=== PATIENT | male | born 1945 | race Caucasian/White ===

== ENCOUNTER 2016-12-14 16:43 | Inpatient (IN) | payer MEDICARE ==
[2016-12-14 17:39] LABS: Hematocrit 45.2 % (42.0-52.0); Hemoglobin 15.4 gm/dL (13.5-18.0); Mean Corpuscular Hemoglobin 30.7 pg (27-31); Mean Corpuscular Hgb Conc 34.1 g/dl (32-36); Mean Platelet Volume 10.8 fl (6.0-9.5); Neutrophil # 4.5 K/mm3 (1.3-6.0); Neutrophil % 80.3 % (42-75.0); Platelet Count 190 K/mm3 (150-450); Red Blood Count 5.02 M/mm3 (4.7-6.0); Red Cell Distribution Width 13.9 % (11.5-14.0); White Blood Count 5.6 K/mm3 (4.0-10.5)
[2016-12-14] MEDS: NORMAL SALINE 1,000 ML IV PRN (17:45)
[2016-12-14 17:49] LABS: Albumin * 3.5 gm/dl (3.4-5.0); Anion Gap 13.1 mmol/L (6.8-13.8); BUN/Creatinine Ratio 14.4 (9.0-21.6); Bilirubin, Total 1.4 mg/dL (0.0-1.1); CRP 9.3 mg/dL (0.0-0.9); Calcium * 8.9 mg/dL (7.9-10.9); Carbon Dioxide 28.8 mmol/L (24-32.6); Potassium 4.9 mmol/L (3.4-4.6); Total Protein 7.4 gm/dL (6.2-8.2)
[2016-12-14] MEDS ORDERED: VANCOMYCIN HCL 1 GM in DEXTROSE 5 % IN WATER 250 ML IV ONE ×2 (17:55)
--- NOTE | 2016-12-14 17:55 | ERNOTE ---
Lower Extremity HPI - General Lower Extremities Pain: foot: right Time Seen by Provider: 12/14/16 16:54 Source: patient, family Exam Limitations: no limitations - Immun/Allergies/Home Medications Immunizations: IMMUNIZATION HX Immunizations Up to Date Yes History of Influenza Vaccine Yes Hx Pneumococcal Vaccination No Allergies/Adverse Reactions: Allergies Allergy/AdvReac Type Severity Reaction Status Date / Time chlorhexidine Allergy Verified 12/14/16 16:55 Home Medications: HOME MEDICATIONS Cardizem 12/14/16 [Last Taken Unknown] Metoprolol Tartrate 12/14/16 [Last Taken Unknown] - History of Present Illness Narrative: Patient presents with progressive right foot swelling, erythema and erythema streaking up the mid calf. Onset of symptoms was approximately 4 days ago and is getting progressively worse. She has a previous history of cellulitis and he was seen at Dr. Gonzalez's office was found to have probable osteomyelitis and cellulitis. Date (Duration): 12/10/16 Method of Injury: Reports: no apparent injury Loss of Consciousness: Reports: no loss of consciousness Associated Symptoms: Reports: unable to bear weight - painful weight bearing Other Injuries: Reports: none Prior Treament: Reports: recently seen Review of Systems - Review of Systems Constitutional: Present: See HPI, fever EYE: Present: no symptoms reported ENT: Present: no symptoms reported Respiratory: Present: no symptoms reported Cardiology: Present: no symptoms reported Gastrointestinal/Abdominal: Present: no symptoms reported Genitourinary: Present: no symptoms reported Musculoskeletal: Present: joint swelling - primarily the second toe on the right foot Skin: Present: change in color Neurological: Present: no symptoms reported Endocrine: Present: no symptoms reported Hematologic/Lymphatic: Present: no symptoms reported Psych: Present: no symptoms reported - Patient's Past Medical History Patient History - Medical: Other - sepsis and cellulitis with abscess Patient History - Cardiac/Respiratory: Atrial Fibrillation, Hypertension Patient History - Cancer: Skin Patient History - Surgical Procedures: Cancer Surgery, Total Hip Replacement, Total Knee Replacement Patient History - Other: None - Social History Living Situations: home Abuse History: No History of abuse Psych History: No pertinent hx Smoking Status: Never smoker Alcohol Use: none Drug Use: none - Immunizations Immunizations Up to Date: Yes Hx Pneumococcal Vaccination: No History of Influenza Vaccine: Yes Physical Exam - Physical Exam General Appearance: Present: wd/wn, alert, moderate distress Eye Exam: Normal inspection: bilateral, PERRL: bilateral Ears, Nose, Throat: Present: normal ENT inspection, H, normal pharynx Neck: Present: normal inspection, nontender Respiratory: Present: no respiratory distress, normal breath sounds, no accessory muscle use, chest nontender, lungs clear Cardiovascular/Chest: Present: regular rate, rhythm, no murmur, normal peripheral pulses Gastrointestinal/Abdominal: Present: normal bowel sounds, nontender, nondistended, soft, no organomegaly Rectal Exam: Present: deferred Back Exam: Present: normal inspection, normal range of motion Extremity Exam: Present: bony tenderness, joint redness, joint swelling, extremity edema Neurological Exam: Present: alert, oriented, normal mood/affect Skin Exam: Present: other - erythema Lymphatic Exam: Present: no adenopathy ED Progress - Results and Orders Patient's Lab Results:: I have reviewed the patient's lab results. - Vital Signs Patient's Vital Signs:: I have reviewed the patient's vital signs. Vital Signs: Vital Signs 12/14/16 16:54 Temperature 37.1 C Pulse Rate 90 Respiratory 17 Rate Blood Pressure 146/88 O2 Sat by Pulse 96 Oximetry - Progress/Reassessment Chief Complaint: Lower Extremity Pain/ Injury Progress:: Unchanged Plan - Plan Plan: Patient certainly has cellulitis and likely has osteomyelitis as well. He will be admitted to a [facility] bed blood cultures have been ordered vancomycin will be started and Dr. Martin will manage his care on the floor and probable surgical consult with Dr. Nogueira or possibly orthopedics. Departure Clinical Impression: Cellulitis Qualifiers: Site of cellulitis: extremity Site of cellulitis of extremity: toe Laterality: right Qualified Code(s): L03.031 - Cellulitis of right toe Osteomyelitis Qualifiers: Osteomyelitis type: unspecified type Osteomyelitis location: foot Laterality: right Qualified Code(s): M86.9 - Osteomyelitis, unspecified - Departure Disposition: [facility] Condition: Fair
[2016-12-14 18:09] LABS: Urine Bilirubin Negative (NEGATIVE); Urine Blood Negative /ul (NEGATIVE); Urine Ketone Negative (NEGATIVE); Urine Nitrite Negative (NEGATIVE); Urine Protein 100 mg/dL (NEGATIVE); Urine Specific Gravity >=1.030 SP.GR. (1.005-1.030); Urine Urobilinogen Normal (NORMAL); Urine pH 5.5 pH (5.0-7.0)
[2016-12-14] MEDS ORDERED: VANCOMYCIN HCL 1.75 GM in DEXTROSE 5 % IN WATER 500 ML IV ONE ×2 (18:15)
[2016-12-14 18:29] LABS: Urine Appearance Clear; Urine Bacteria None Seen; Urine Color Dark Yellow; Urine RBC None Seen /hpf (0-5); Urine WBC None Seen /hpf (0-5)
--- NOTE | 2016-12-14 20:13 | HP ---
Chief Complaint - Chief Complaint Date of Service: 12/14/16 Time of Service: 20:13 Chief Complaint: " 2 nd RT Toe pain, Redness". Source of HPI- Pt; reliable, ER provider report. History of Present Illness: Mr. Metcalf is 71-yr-old WM pt whose PCP is Dr. Ebenezer Alfred in [facility]. His PMH involves Afib & HTN. 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 He states that for many years, he has been seen by Podiatry for his Second RT Toe which is much lengthier than other toes and has required frequent trimming/callus removal. However, since relocating to the [facility], he has not kept up with the Podiatry care for his toe. He states that 4 days ago, he begun having pain, swelling, and redness on that toe. He tried home remedy by trimming the callus off and Anti-fungal medicine but that did not provide any relief. Today, he saw a Institutional Research Director in [facility], Dr. Julian Hector who did more trimming. He was going to send him home on oral antibiotics but because of redness, her advised that his foot may require IV antibiotics, and therefore, he came to [facility] ER. He denies fevers and chills. He states that he normally has discoloration on his legs from Venous Stasis, but the redness on his RT leg is new.Off note, pt states that in 2014, he developed an Abscess on his dorsal RT foot and the staph. infection spread to his RT knee, Spine, and Aortic valve which led to a Mechanical valve replacement. He states that he was placed on IV Vancomycin for 7 months. During evaluation at the ED today, the he did not have any WBC, but there were LT shift. He had elevated ESR/CRP of 27/9.3. He had notable Erythema and Hotness on his RT Leg/foot. The tip of toe has bloody/yellowish drainage with exposed tissue. Pt will need to be admitted under observation status due to Cellulitis. He may require additional imaging to ensure there in no Osteomyelitis developing. - Patient's Past Medical History Patient History - Medical: Other - sepsis and cellulitis with abscess Patient History - Cardiac/Respiratory: Atrial Fibrillation, Hypertension Patient History - Cancer: Skin Patient History - Surgical Procedures: Cancer Surgery, Total Hip Replacement, Total Knee Replacement Patient History - Other: None - Family History Father Family History - Medical: Family History - Cardiac/Respiratory: COPD Mother Family History - Medical: , Anemia, Other - Aplastic Anemia - Social History Living Situations: home Abuse History: No History of abuse Psych History: No pertinent hx Smoking Status: Never smoker Alcohol Use: none Drug Use: none - Immunizations Immunizations Up to Date: Yes Hx Pneumococcal Vaccination: No History of Influenza Vaccine: Yes Review Of Systems (GEN) - Review of Systems Generalized/Overall Review: Absent: Weakness, Chills, Fever EENTM: Absent: Eye Pain, Double Vision Respiratory: Absent: Cough, Shortness of Breath, Stridor Cardiac: Absent: Chest Pain, Edema, Palpitations Abdominal: Absent: Nausea, Vomiting, Hematemesis, Abdominal Pain, Constipation Genitourinary: Absent: Burning, Itching, Frequency, Hematuria Musculoskeletal: Present: Joint Pain Neurological: Absent: Headache, Anxiety, Depressed Skin: Absent: Dryness, Lesions Endocrine: Absent: Intolerance to Cold, Intolerance to Heat, Increased Thirst Misc: All systems neg except as marked Immunizations: IMMUNIZATION HX Immunizations Up to Date Yes History of Influenza Vaccine Yes Hx Pneumococcal Vaccination No Allergies/Adverse Reactions: Allergies Allergy/AdvReac Type Severity Reaction Status Date / Time chlorhexidine Allergy Verified 12/14/16 16:55 Home Medications: HOME MEDICATIONS Ascorbic Acid [Vitamin C] 500 mg PO 169912/14/16 [Last Taken Unknown] Aspirin [Aspir-Low] 81 mg PO 169912/14/16 [Last Taken Unknown] Atorvastatin Calcium 40 mg PO HS 12/14/16 [Last Taken Unknown] Cholecalciferol [Vitamin D] 400 unit PO 169912/14/16 [Last Taken Unknown] Diltiazem HCl [Cardizem Cd] 120 mg PO 169912/14/16 [Last Taken Unknown] Furosemide [Lasix] 40 mg PO DAILY 12/14/16 [Last Taken Unknown] Metoprolol Tartrate 100 mg PO BID 12/14/16 [Last Taken Unknown] Multivit with Iron-Minerals [Compete] 1 tab PO DAILY 12/14/16 [Last Taken Unknown] Pantoprazole Sodium [Protonix] 40 mg PO 169912/14/16 [Last Taken Unknown] Potassium Chloride [Klor-Con 10] 20 meq PO BID 12/14/16 [Last Taken Unknown] Vitamin B Complex Vit C No.4 [Super B Complex] 1 tab PO DAILY 12/14/16 [Last Taken Unknown] Warfarin Sodium [Coumadin] 2.5 mg PO YATES 12/14/16 [Last Taken Unknown] Warfarin Sodium [Coumadin] 5 mg PO MOTUWETHFRSA 12/14/16 [Last Taken Unknown] Exam - Exam Vital Signs: Vital Signs - Last Taken Temp 36.6 C 12/14/16 18:50 Pulse 88 12/14/16 18:50 Resp 16 12/14/16 18:50 BP 140/75 12/14/16 18:50 Pulse Ox 96 12/14/16 18:50 Constitutional: Present: Alert, Oriented x3, No distress ENT Exam: Present: normal ENT inspection, hearing grossly normal, dry mucous membranes. Absent: nasal drainage, pharyngeal erythema Eye Exam: bilateral eye: normal inspection, PERRL Neck: Present: full range of motion, supple, normal inspection Back Exam: Present: normal inspection, no CVA tenderness Breasts: Present: Exam deferred Respiratory: Present: lungs clear, normal breath sounds, no accessory muscle use Cardiovascular/Chest: Present: normal peripheral pulses, regular rate, rhythm, no murmur Abdomen: Present: Normal bowel sounds, soft, nontender /Rectal: Present: Exam deferred Extremity: Present: normal range of motion, swelling, other - RT foot. Skin Exam: Present: other - Erythema on RT foot/leg. Lymphatic: Present: no adenopathy Neurologic: Present: normal mood/affect, oriented x 3, abnormal pharmacy analyst II-XII Appearance: Present: appropriate appearance, appropriate insight Eye contact: Present: cooperative, good eye contact, normal speech Thoughts: Present: normal thought pattern, no apparent hallucination Diagnostic Studies: Laboratory Results WBC 5.6 K/mm3 (4.0-10.5) 12/14/16 17:32 RBC 5.02 M/mm3 (4.7-6.0) 12/14/16 17:32 Hgb 15.4 gm/dL (13.5-18.0) 12/14/16 17:32 Hct 45.2 % (42.0-52.0) 12/14/16 17:32 MCV 90.0 fl (78-100) 12/14/16 17:32 MCH 30.7 pg (27-31) 12/14/16 17: MCHC 34.1 g/dl (32-36) 12/14/16 17: RDW 13.9 % (11.5-14.0) 12/14/16 17: Plt Count 190 K/mm3 (150-450) 12/14/16 17: MPV 10.8 fl (6.0-9.5) H 12/14/16 17: Immature Gran % (Auto) 0.20 % (0.001-0.429) 12/14/16: Immature Gran # (Auto) 0.01 K/mm3 (0.000-0.0310) 12/14/16: Neutrophils % 80.3 % (42-75.0) H 12/14/16 17: Lymphocytes % 9.8 % (20-51) L 12/14/16: Monocytes % 8.2 % (0.0-9) 12/14/16: Eosinophils % 1.1 % (0.0-3.0) 12/14/16: Basophils % 0.4 % (0.0-1.0) 12/14/16: Nucleated RBC % 0.0 k/mm3 (0-1) 12/14/16: Neutrophils # 4.5 K/mm3 (1.3-6.0) 12/14/16: Lymphocytes # 0.6 k/mm3 (1.5-3.5) L 12/14/16: Monocytes # 0.5 k/mm3 (0.0-1.0) 12/14/16: Eosinophils # 0.1 k/mm3 (0.0-0.7) 12/14/16: Absolute Basophils 0.0 k/mm3 (0.0-0.1) 12/14/16 17: ESR 27 mm/hr (0-10) H 12/14/16 17:32 Sodium 145 mmol/L (132-142) H 12/14/16 17:32 Plasma Sodium 145 mmol/L (130-142) H 12/14/16 17:32 Potassium 4.9 mmol/L (3.4-4.6) H 12/14/16 17:32 Chloride 108 mmol/L (97-106) H 12/14/16 17:32 Carbon Dioxide 28.8 mmol/L (24-32.6) 12/14/16 17:32 Anion Gap 13.1 mmol/L (6.8-13.8) 12/14/16 17:32 BUN 20 mg/dL (6-23) 12/14/16 17:32 Creatinine 1.39 mg/dL (0.4-1.4) 12/14/16 17:32 Est GFR (Non-Af Amer) 54 mL/min (60-130) L 12/14/16 17:32 BUN/Creatinine Ratio 14.4 (9.0-21.6) 12/14/16: Random Glucose 103 mg/dL (70-110) 12/14/16 17:32 Lactic Acid, Venous 1.8 mmol/L (0.4-1.9) 12/14/16 17: Calcium 8.9 mg/dL (7.9-10.9) 12/14/16 17: Calcium Adj for Albumin 9.0 mg/dL (8.4-10.2) 12/14/16 17: Magnesium 2.0 mg/dL (1.2-2.8) 12/14/16 17:32 Total Bilirubin 1.4 mg/dL (0.0-1.1) H 12/14/16 17:32 AST 30 U/L (0-48) 12/14/16 17:32 ALT 33 U/L (19-67) 12/14/16 17:32 Alkaline Phosphatase 102 U/L (50-170) 12/14/16 17:32 C-Reactive Prot, Quant 9.3 mg/dL (0.0-0.9) H 12/14/16 17:32 Total Protein 7.4 gm/dL (6.2-8.2) 12/14/16 17:32 Albumin 3.5 gm/dl (3.4-5.0) 12/14/16 17:32 Urine Color Dark yellow 12/14/16 17:30 Urine Appearance Clear 12/14/16 17:30 Urine pH 5.5 pH (5.0-7.0) 12/14/16 17:30 Ur Specific Mcclave >=1.030 SP.GR. (1.005-1.030) 12/14/16 17:30 Urine Protein 100 mg/dL (NEGATIVE) H 12/14/16 17:30 Urine Glucose (UA) Negative mg/dL (NEGATIVE) 12/14/16 17:30 Urine Ketones Negative mg/dL (NEGATIVE) 12/14/16 17:30 Urine Blood Negative /ul (NEGATIVE) 12/14/16 17:30 Urine Nitrate Negative (NEGATIVE) 12/14/16 17:30 Urine Bilirubin Negative mg/dl (NEGATIVE) 12/14/16 17:30 Prot Sulfosalicylic Acd Negative mg/dL (0) 12/14/16 17:30 Urine Urobilinogen Normal EU/dl (NORMAL) 12/14/16 17:30 Ur Leukocyte Esterase Negative /ul (NEGATIVE) 12/14/16 17:30 Urine RBC None seen /hpf (0-5) 12/14/16 17:30 Urine WBC None seen /hpf (0-5) 12/14/16 17:30 Ur Epithelial Cells None seen /hpf (0-5) 12/14/16 17:30 Urine Bacteria None seen (NONE) 12/14/16 17:30 Urine Culture Comments No culture indicated 12/14/16 17:30 Assessment/Plan - Assessment/Plan (1) Cellulitis Assessment: Mr. Metcalf has localized Erythema, Hotness, Swelling &Tenderness of RLE, but he denies fevers and malaise. The Second rt foot toe has skin breach from callus trimming. Even though WBC is not elevated, he has emerging high Neutrophils, and ESR and CRP are elevated. No imaging of the foot pending or completed. MRI of the foot will be necessary to obtain as it will be helpful in determining/identifying other complications such as Abscess, deep tissue infections & Osteomyelitis. According to history provided, he reports having an abscess on the same RT foot that led to a systemic infection in 2015, causing him to be on Antibiotics x 7 months (will request medical records from [facility] in [place]). Wound and blood cultures collected. Will cover IV Vancomycin as he has MRSA risk factor from a prior and prolonged antibiotic treatment in 2015. Provide supportive cares with IVF and pain mgt. Will consult Podiatry for his toe wound. Monitor CBC in am. Problem: Acute Qualifiers: Site of cellulitis: extremity Site of cellulitis of extremity: toe Laterality: right Qualified Code(s): L03.031 - Cellulitis of right toe (2) DVT (deep venous thrombosis) Assessment: Given the swelling which is unilateral & Cellulitis on RT foot, he may need an objective study to r/o DVT. Consider Venous duplex in am. Problem: Suspected (3) Dehydration Assessment: Pt noted to have k+ 4.9 and Na 145. Is likely pre-renal. Hydrate with IVF. BMP in am. Problem: Acute (4) A-fib Assessment: Stable- On Coumadin, Metoprolol and Cardizem. Place on telemetry monitoring. Pharmacy to manage coumadin levels. Problem: Chronic (5) HTN (hypertension) Assessment: Stable- On metoprolol. Problem: Chronic
[2016-12-14] MEDS ORDERED: WARFARIN SODIUM 5 MG TABLET PO ONE (22:30)
[2016-12-15] MEDS ORDERED: VANCOMYCIN HCL 1 GM in DEXTROSE 5 % IN WATER 250 ML IV SCH ×4 (01:45→08:00)
[2016-12-15] MEDS ORDERED: HYDROmorphone HCL 1 MG/ML DISP.SYRIN IV PRN (01:53)
[2016-12-15] MEDS ORDERED: HYDROcodone/ACETAMINOPHEN 1 EACH TABLET PO PRN (01:54)
[2016-12-15] MEDS: NORMAL SALINE 1,000 ML IV PRN ×3 (02:06→19:53)
[2016-12-15] MEDS ORDERED: WARFARIN SODIUM 5 MG TABLET PO SCH ×2 (02:30→17:00)
[2016-12-15] MEDS: METOPROLOL TARTRATE 100 MG TABLET PO SCH ×3 (02:48→20:09)
[2016-12-15] MEDS: DILTIAZEM HCL 120 MG CAP.SR.24H PO SCH ×2 (02:49→17:05)
[2016-12-15 06:13] LABS: Anion Gap 12.2 mmol/L (6.8-13.8); BUN/Creatinine Ratio 13.4 (9.0-21.6); Calcium * 8.1 mg/dL (7.9-10.9); Estimated Creat Clear 62.4; Potassium 4.2 mmol/L (3.4-4.6)
[2016-12-15 06:35] LABS: Prothrombin Time (Patient) 22.1 Seconds (9.4-11.4)
[2016-12-15 06:37] LABS: INR 2.13 INR (0.90-1.10)
[2016-12-15 06:44] LABS: Hematocrit 41.8 % (42.0-52.0); Hemoglobin 14.4 gm/dL (13.5-18.0); Mean Cell Volume 90.7 fl (78-100); Mean Corpuscular Hemoglobin 31.2 pg (27-31); Mean Corpuscular Hgb Conc 34.4 g/dl (32-36); Platelet Count 160 K/mm3 (150-450); Red Blood Count 4.61 M/mm3 (4.7-6.0); Red Cell Distribution Width 13.9 % (11.5-14.0); White Blood Count 4.3 K/mm3 (4.0-10.5)
[2016-12-15 06:52] LABS: Total Cells Counted 100
[2016-12-15 07:00] LABS: Atypical (Reactive) Lymph 1 % (0-2); Band 2 % (0-2.0); Eosinophil 1 % (0-3); Lymphocyte 21 % (20-51); Monocyte 6 % (0-9); Neutrophil 69 % (42-75); Platelet Estimate Normal (NORMAL); RBC Morphology Normal (NORMAL)
[2016-12-15] MEDS ORDERED: VANCOMYCIN HCL 1.75 GM in DEXTROSE 5 % IN WATER 500 ML IV SCH ×2 (08:00)
[2016-12-15] MEDS: MULTIVIT WITH IRON-MINERALS 1 TAB TABLET PO SCH (08:43)
[2016-12-15] MEDS: VITAMIN B COMP W-C 1 TAB TABLET PO SCH (08:43)
[2016-12-15] MEDS: FUROSEMIDE 40 MG TABLET PO SCH (08:43)
[2016-12-15] MEDS: CHOLECALCIFEROL 400 UNIT TABLET PO SCH (17:06)
[2016-12-15] MEDS: ASCORBIC ACID 500 MG TABLET PO SCH (17:06)
[2016-12-15] MEDS: ASPIRIN 81 MG TABLET.DR PO SCH (17:06)
[2016-12-15] MEDS: PANTOPRAZOLE SODIUM 40 MG TABLET.EC PO SCH (17:07)
[2016-12-15] MEDS ORDERED: IBUPROFEN 600 MG TABLET PO PRN (17:16)
--- NOTE | 2016-12-15 17:36 | CONS ---
[facility] - General Date of Service: 12/15/16 Narrative: Pt seen today for ulceration to his right 2nd toe. Was admitted with c/o increasing redness, swelling, and drainage from the toe. States that he recently moved to the area from [place]. Was under the care of a food and nutrition professor there for callus to the tip of the 2nd toe. States that it has been a long time since he has had any formal treatment so it has "gotten out of hand". Did present to Dr. Hector yesterday who recommended he go to ED for eval and likely admission. He was placed on IV ABX and states that he has noticed significant improvement in just the last 24 hours. He has had MRI concerning for osteomyelitis of the distal phalanx of the toe. I was consulted for possible surgical care. Source: patient Exam Limitations: no limitations - History of Present Illness Allergies/Adverse Reactions: Allergies chlorhexidine Allergy (Verified 12/14/16 16:55) Home Medications: Home Medications Medication Instructions Recorded Last Taken Ascorbic Acid [Vitamin C] 500 mg PO 169912/14/16 Unknown Aspirin [Aspir-Low] 81 mg PO 169912/14/16 Unknown Atorvastatin Calcium 40 mg PO HS 12/14/16 Unknown Cholecalciferol [Vitamin D] 400 unit PO 169912/14/16 Unknown Diltiazem HCl [Cardizem Cd] 120 mg PO 169912/14/16 Unknown Furosemide [Lasix] 40 mg PO DAILY PRN 12/14/16 Unknown Metoprolol Tartrate 100 mg PO BID 12/14/16 Unknown Multivit with Iron-Minerals 1 tab PO DAILY 12/14/16 Unknown [Compete] Pantoprazole Sodium [Protonix] 40 mg PO 169912/14/16 Unknown Potassium Chloride [Klor-Con 10] 20 meq PO BID 12/14/16 Unknown Vitamin B Complex Vit C No.4 1 tab PO DAILY 12/14/16 Unknown [Super B Complex] Warfarin Sodium [Coumadin] 2.5 mg PO YATES 12/14/16 Unknown Warfarin Sodium [Coumadin] 5 mg PO MOTUWETHFRSA 12/14/16 Unknown - Patient's Past Medical History Patient History - Medical: Other - sepsis and cellulitis with abscess Patient History - Cardiac/Respiratory: Atrial Fibrillation, Hypertension Patient History - Cancer: Skin Patient History - Surgical Procedures: Cancer Surgery, Total Hip Replacement, Total Knee Replacement Patient History - Other: None - Family History Father Family History - Medical: Family History - Cardiac/Respiratory: COPD Mother Family History - Medical: , Anemia, Other - Aplastic Anemia - Social History Living Situations: home Abuse History: No History of abuse Psych History: No pertinent hx Smoking Status: Never smoker Have you smoked in the past 12 months: No Do you dip or chew tobacco: No Alcohol Use: none Drug Use: none - Immunizations Immunizations Up to Date: Yes Hx Pneumococcal Vaccination: No History of Influenza Vaccine: Yes Medications - Medications Current Medications: Current Medications Ascorbic Acid (Vitamin C) 500 mg PO 1700 [facility] Stop: 01/14/17 17:01 Last Admin: 12/15/16 17:06 Dose: 500 mg Aspirin (Aspirin Enteric Coated) 81 mg PO 1700 [facility] Stop: 01/14/17 17:01 Last Admin: 12/15/16 17:06 Dose: 81 mg Cholecalciferol (Vitamin D) 400 units PO 1700 [facility] Stop: 01/14/17 17:01 Last Admin: 12/15/16 17:06 Dose: 400 units Diltiazem HCl (Cardizem Cd) 120 mg PO 1700 [facility] Stop: 01/13/17 22:01 Last Admin: 12/15/16 17:05 Dose: 120 mg Furosemide (Lasix) 40 mg PO DAILY [facility] Stop: 01/14/17 09:01 Last Admin: 12/15/16 08:43 Dose: 40 mg Sodium Chloride (Sodium Chloride 0.9%) 1,000 mls @ 125 mls/hr IV .Q8H PRN PRN Reason: HYDRATION Stop: 01/13/17 17:19 Last Admin: 12/15/16 09:59 Dose: 125 mls/hr Iron/Minerals/Multivitamins ([facility] [employer]) 1 tab PO DAILY [facility] Stop: 01/14/17 09:01 Last Admin: 12/15/16 08:43 Dose: 1 tab Metoprolol Tartrate (Lopressor) 100 mg PO BID [facility] Stop: 01/13/17 22:01 Last Admin: 12/15/16 08:43 Dose: 100 mg Pantoprazole Sodium (Protonix) 40 mg PO 1700 [facility] Stop: 01/14/17 17:01 Last Admin: 12/15/16 17:07 Dose: 40 mg Vitamin B Complex/Vitamin C (Vitabee W/C) 1 tab PO DAILY [facility] Stop: 01/14/17 09:01 Last Admin: 12/15/16 08:43 Dose: 1 tab Review of Systems - Review of Systems Cardiac: Present: Edema Skin: Present: Other - ulceration right 2nd toe, erythema right foot/lower leg Physical Examination - Exam Vital Signs: Vital Signs - Last Taken Temp 36.8 C 12/15/16 10:56 Pulse 86 12/15/16 17:05 Resp 18 12/15/16 10:56 BP 132/73 12/15/16 17:05 Pulse Ox 99 12/15/16 10:56 O2 Oxygen Delivery Method Room Air Constitutional: Present: Alert, Oriented x3, Cooperative, No distress Peripheral Pulses: dorsalis-pedis (R): 1+, dorsalis-pedis (L): 1+ Extremity: Present: lower extremity edema Skin Exam: Present: other - Hyperpigmentation to b/l lower legs Ulceration to distal right 2nd toe measuring 0.2 x 0.2 x 0.4 cm. No tunneling or undermining. Loss of tissue to full thickness with exposure of subcutaneous fat layer. Base mostly fibrotic, surrounding tissue hyperkeratotic and erythematous with erythema extending to the dorsal midfoot. Toe is swollen. Minimal purulent drainage, no malodor. No exposed tendon, however can probe to bone. Appearance: Present: appropriate appearance Eye contact: Present: cooperative - Results and Findings: Lab/Microbiology results last 24 hrs: Abnormal/Pending Laboratory Last 24 HRS 12/15/16 12/15/16 12/15/16 05:25 05:25 05:25 RBC 4.61 L Hct 41.8 L MCH 31.2 H Lymphocytes # (Manual) 0.9 L PT 22.1 H INR (Anticoag Therapy) 2.13 H Chloride 107 H - Assessments/Findings (1) Cellulitis Diagnosis(s): Continue IV ABX. Problem: Acute Qualifiers: Site of cellulitis: extremity Site of cellulitis of extremity: toe Laterality: right Qualified Code(s): L03.031 - Cellulitis of right toe (2) Osteomyelitis Diagnosis(s): Continue IV ABX. Discussed with pt options for further care including [facility] IV ABX vs excision of infected bone vs partial amputation of the toe. There would be no guarantee the infection would resolve with outsole handler ABX and pt may require surgery in the future. Pt/ elect to try [facility] IV ABX. Do not wish to pursue surgery at this time. Understand risks of this option. Will discuss with PCP. Problem: Acute Qualifiers: Osteomyelitis type: unspecified type Osteomyelitis location: foot Laterality: right Qualified Code(s): M86.9 - Osteomyelitis, unspecified (3) Ulcer of toe of right foot Diagnosis(s): Ulceration to right 2nd toe debrided to subcutaneous tissue with #15 blade, excising all surrounding hyperkeratotic tissue revealing a healthy, bleeding subcutaneous wound margin. Surface also debrided to subcutaneous tissue with # 15 blade excising fibrotic tissue revealing healthy bleeding subcutaneous wound bed. Compression applied to toe, expressing purulent drainage until only serosanguinous drainage remains. Hemostasis with compression. Pt tolerated well. Ulcer packed with dry gauze and dressed with gauze, campbell, and tape. Will begin daily dresing changes. Problem: Acute Qualifiers: Non-pressure ulcer stage: with necrosis of bone Qualified Code(s): L97.514 - Non-pressure chronic ulcer of other part of right foot with necrosis of bone
[2016-12-15] MEDS: VANCOMYCIN HCL 1.75 GM in NORMAL SALINE 500 ML IV SCH (19:53)
[2016-12-15] MEDS: ROSUVASTATIN CALCIUM 10 MG TABLET PO SCH (20:09)
[2016-12-15] MEDS ORDERED: ATORVASTATIN CALCIUM 40 MG TABLET PO SCH (21:00)
--- NOTE | 2016-12-15 23:57 | PN ---
Subjective - Date and Time Seen Date: 12/15/16 Time: 12:30 Subjective Narrative: Reports redness is improved. No fever, chills, n/v. Objective - Vitals Vitals: Last Vital Signs Temp 36.1 C L 12/15/16 23:39 Pulse 89 12/15/16 23:39 Resp 18 12/15/16 23:39 BP 146/72 12/15/16 23:39 Pulse Ox 95 12/15/16 23:39 - Abnormal Lab Findings Abnormal Lab Findings: Abnormal Lab Results 12/15/16 12/15/16 12/15/16 Range/Units 05:25 05:25 05:25 RBC 4.61 L (4.7-6.0) M/mm3 Hct 41.8 L (42.0-52.0) % MCH 31.2 H (27-31) pg Lymphocytes # (Manual) 0.9 L (1.5-3.5) k/mm3 PT 22.1 H (9.4-11.4) Seconds INR (Anticoag Therapy) 2.13 H (0.90-1.10) INR Chloride 107 H (97-106) mmol/L - Exam Constitutional: Present: Alert, Oriented x3, Cooperative Respiratory: Present: lungs clear. 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 Will obtain MRI of foot for further evaluation. Continue zosyn and vancomycin. Appears to be improving by labs and patient report of improved erythema. Podiatry consulted. Will follow labs (CBC, ESR, CRP) for evidence of improvement on antibiotics. Will discuss with podiatry whether surgery is needed. - Problems/Diagnosis (1) Cellulitis Problem: Acute Qualifiers: Site of cellulitis: extremity Site of cellulitis of extremity: toe Laterality: right Qualified Code(s): L03.031 - Cellulitis of right toe (2) Ulcer of toe of right foot Problem: Acute Qualifiers: Non-pressure ulcer stage: with necrosis of bone Qualified Code(s): L97.514 - Non-pressure chronic ulcer of other part of right foot with necrosis of bone
[2016-12-16] MEDS: NORMAL SALINE 1,000 ML IV PRN ×2 (03:30→15:44)
[2016-12-16 06:03] LABS: Anion Gap 10.4 mmol/L (6.8-13.8); BUN/Creatinine Ratio 12.5 (9.0-21.6); CRP 4.1 mg/dL (0.0-0.9); Calcium * 8.3 mg/dL (7.9-10.9); Carbon Dioxide 28.6 mmol/L (24-32.6); Hematocrit 43.8 % (42.0-52.0); Hemoglobin 14.6 gm/dL (13.5-18.0); Mean Cell Volume 90.5 fl (78-100); Mean Corpuscular Hemoglobin 30.2 pg (27-31); Mean Corpuscular Hgb Conc 33.3 g/dl (32-36); Mean Platelet Volume 10.9 fl (6.0-9.5); Neutrophil # 3.3 K/mm3 (1.3-6.0); Neutrophil % 70.6 % (42-75.0); Platelet Count 191 K/mm3 (150-450); Prothrombin Time (Patient) 17.5 Seconds (9.4-11.4); Red Blood Count 4.84 M/mm3 (4.7-6.0); Red Cell Distribution Width 13.8 % (11.5-14.0); White Blood Count 4.7 K/mm3 (4.0-10.5)
[2016-12-16 06:17] LABS: INR 1.68 INR (0.90-1.10)
[2016-12-16] MEDS ORDERED: VANCOMYCIN HCL LEVEL XX ONE (07:30)
[2016-12-16] MEDS: VANCOMYCIN HCL 1.75 GM in NORMAL SALINE 500 ML IV SCH (08:00)
[2016-12-16] MEDS: METOPROLOL TARTRATE 100 MG TABLET PO SCH ×2 (09:47→20:34)
[2016-12-16] MEDS: VITAMIN B COMP W-C 1 TAB TABLET PO SCH (09:48)
[2016-12-16] MEDS: FUROSEMIDE 40 MG TABLET PO SCH (09:48)
[2016-12-16] MEDS: MULTIVIT WITH IRON-MINERALS 1 TAB TABLET PO SCH (09:48)
[2016-12-16] MEDS ORDERED: WARFARIN SODIUM 5 MG TABLET PO SCH (17:00)
--- NOTE | 2016-12-16 17:39 | PN ---
Subjective - Date and Time Seen Date: 12/16/16 Time: 17:34 Subjective Narrative: Pt seen at bedside resting. States he continues to improve with current ABX and care. Denies N/V/F/C. Relates occasional pain to right 2nd toe. Objective - Review of Systems Skin: Reports: Other - Ulceration right 2nd toe, erythema right foot - Vitals Vitals: Last Vital Signs Temp 36.4 C L 12/16/16 16:12 Pulse 81 12/16/16 16:12 Resp 18 12/16/16 16:12 BP 133/74 12/16/16 16:12 Pulse Ox 97 12/16/16 16:12 - Abnormal Lab Findings Abnormal Lab Findings: Abnormal Lab Results 12/16/16 12/16/16 12/16/16 Range/Units 05:37 05:37 05:37 MPV 10.9 H (6.0-9.5) fl Lymphocytes % 17.9 L (20-51) % Lymphocytes # 0.8 L (1.5-3.5) k/mm3 ESR (0-10) mm/hr PT 17.5 H (9.4-11.4) Seconds INR (Anticoag Therapy) 1.68 H (0.90-1.10) INR Est GFR (Non-Af Amer) 59 L (60-130) mL/min C-Reactive Prot, Quant 4.1 H (0.0-0.9) mg/dL 12/16/16 Range/Units 06:00 MPV (6.0-9.5) fl Lymphocytes % (20-51) % Lymphocytes # (1.5-3.5) k/mm3 ESR 18 H (0-10) mm/hr PT (9.4-11.4) Seconds INR (Anticoag Therapy) (0.90-1.10) INR Est GFR (Non-Af Amer) (60-130) mL/min C-Reactive Prot, Quant (0.0-0.9) mg/dL - Exam Constitutional: Present: Alert, Oriented x3, Cooperative, No distress Extremity: Present: lower extremity edema Skin Exam: Present: other - Hyperpigmentation to b/l lower legs. Ulceration to distal right 2nd toe measuring 0.4 x 0.2 x 0.4 cm. No tunneling or undermining. Loss of tissue to full thickness with exposure of subcutaneous fat layer. Base mostly fibrotic, surrounding tissue erythematous with erythema extending to the dorsal midfoot, improved from yesterday and is regressing from previous demarcation. Toe remains swollen, however this too has improved. Minimal serosangiounous drainage, no malodor. No exposed tendon , however can probe to bone. Appearance: Present: appropriate appearance Eye contact: Present: cooperative Assessment/Plan - Problems/Diagnosis (1) Cellulitis Problem: Acute Qualifiers: Site of cellulitis: extremity Site of cellulitis of extremity: toe Laterality: right Qualified Code(s): L03.031 - Cellulitis of right toe Narrative: Continue IV ABX. D/w PCP and plans to check insurance coverage for PICC line and at home ABX infusions. (2) Osteomyelitis Problem: Acute Qualifiers: Osteomyelitis type: unspecified type Osteomyelitis location: foot Laterality: right Qualified Code(s): M86.9 - Osteomyelitis, unspecified Narrative: Continue IV ABX as discussed. Again advised that if this is not successful at treating, may require surgery. States understanding. (3) Ulcer of toe of right foot Problem: Acute Qualifiers: Non-pressure ulcer stage: with necrosis of bone Qualified Code(s): L97.514 - Non-pressure chronic ulcer of other part of right foot with necrosis of bone Narrative: Dressing to right 2nd toe changed. Applied dry gauze, campbell, tape. Continue daily dressing changes. Will plan f/u in wound center after d/c home
[2016-12-16] MEDS: ASPIRIN 81 MG TABLET.DR PO SCH (18:46)
[2016-12-16] MEDS: CHOLECALCIFEROL 400 UNIT TABLET PO SCH (18:46)
[2016-12-16] MEDS: PANTOPRAZOLE SODIUM 40 MG TABLET.EC PO SCH (18:46)
[2016-12-16] MEDS: ASCORBIC ACID 500 MG TABLET PO SCH (18:46)
[2016-12-16] MEDS: DILTIAZEM HCL 120 MG CAP.SR.24H PO SCH (18:46)
[2016-12-16] MEDS: ROSUVASTATIN CALCIUM 10 MG TABLET PO SCH (20:34)
[2016-12-16] MEDS: VANCOMYCIN HCL 1.75 GM in DEXTROSE 5 % IN WATER 500 ML IV SCH ×2 (20:35)
--- NOTE | 2016-12-16 23:55 | PN ---
Subjective - Date and Time Seen Date: 12/16/16 Time: 16:56 Subjective Narrative: Redness improving, pain controlled. No n/v/f/c. MRI reviewed showing osteomyelitsi of right 2nd distal phalanx and septic arthritis of right 2nd DIP. Discussed with podiatry who reports he could consider residential IV antibiotics vs surgery. Discussed with patient who elects for antibiotics and does not want surgery. Objective - Vitals Vitals: Last Vital Signs Temp 36.5 C 12/16/16 23:26 Pulse 77 12/16/16 23:26 Resp 24 H 12/16/16 23:26 BP 124/85 12/16/16 23:26 Pulse Ox 96 12/16/16 23:26 - Abnormal Lab Findings Abnormal Lab Findings: Abnormal Lab Results 12/16/16 12/16/16 12/16/16 Range/Units 05:37 05:37 05:37 MPV 10.9 H (6.0-9.5) fl Lymphocytes % 17.9 L (20-51) % Lymphocytes # 0.8 L (1.5-3.5) k/mm3 ESR (0-10) mm/hr PT 17.5 H (9.4-11.4) Seconds INR (Anticoag Therapy) 1.68 H (0.90-1.10) INR Est GFR (Non-Af Amer) 59 L (60-130) mL/min C-Reactive Prot, Quant 4.1 H (0.0-0.9) mg/dL 12/16/16 Range/Units 06:00 MPV (6.0-9.5) fl Lymphocytes % (20-51) % Lymphocytes # (1.5-3.5) k/mm3 ESR 18 H (0-10) mm/hr PT (9.4-11.4) Seconds INR (Anticoag Therapy) (0.90-1.10) INR Est GFR (Non-Af Amer) (60-130) mL/min C-Reactive Prot, Quant (0.0-0.9) mg/dL - Exam Constitutional: Present: Alert, Oriented x3, Cooperative ENT Exam: Present: hearing grossly normal Respiratory: Present: lungs clear, normal breath sounds Cardiovascular/Chest: Present: no murmur, irregularly irregular Abdomen: Present: Normal bowel sounds, soft, nontender, nondistended Assessment/Plan - Problems/Diagnosis (1) Osteomyelitis Problem: Acute Qualifiers: Osteomyelitis type: unspecified type Osteomyelitis location: foot Laterality: right Qualified Code(s): M86.9 - Osteomyelitis, unspecified Narrative: Will treat with IV vancomycin. Discussed with patient options of surgical debridemnet and amputation vs antibiotics. He does not want amputation. Will plan of IV vancomycin for 6 weeks. He will need a PIC line and need to be set up with home health for residential IV antibiotics. Will have case management work on this. Goal Vancomycin trough for 15-20. (2) Septic arthritis Problem: Acute Qualifiers: Septic arthritis location: foot Laterality: right (3) Cellulitis Problem: Acute Qualifiers: Site of cellulitis: extremity Site of cellulitis of extremity: toe Laterality: right Qualified Code(s): L03.031 - Cellulitis of right toe
[2016-12-17] MEDS: NORMAL SALINE 1,000 ML IV PRN ×2 (00:15→07:49)
[2016-12-17 05:42] LABS: Prothrombin Time (Patient) 15.2 Seconds (9.4-11.4)
[2016-12-17 05:45] LABS: INR 1.46 INR (0.90-1.10)
[2016-12-17 06:54] LABS: Hematocrit 44.7 % (42.0-52.0); Hemoglobin 15.2 gm/dL (13.5-18.0); Mean Cell Volume 89.2 fl (78-100); Mean Corpuscular Hemoglobin 30.3 pg (27-31); Mean Platelet Volume 10.6 fl (6.0-9.5); Neutrophil # 3.5 K/mm3 (1.3-6.0); Neutrophil % 69.4 % (42-75.0); Platelet Count 196 K/mm3 (150-450); Red Blood Count 5.01 M/mm3 (4.7-6.0); Red Cell Distribution Width 13.8 % (11.5-14.0)
[2016-12-17 07:06] LABS: Albumin * 3.2 gm/dl (3.4-5.0); Anion Gap 6.8 mmol/L (6.8-13.8); BUN/Creatinine Ratio 11.8 (9.0-21.6); Bilirubin, Total 1.1 mg/dL (0.0-1.1); CRP 3.2 mg/dL (0.0-0.9); Ca. Corrected For Albumin 8.4 mg/dL (8.4-10.2); Calcium * 8.1 mg/dL (7.9-10.9); Potassium 3.8 mmol/L (3.4-4.6); Total Protein 6.7 gm/dL (6.2-8.2)
[2016-12-17] MEDS: VANCOMYCIN HCL 1.75 GM in DEXTROSE 5 % IN WATER 500 ML IV SCH ×4 (07:12→20:41)
[2016-12-17] MEDS: VITAMIN B COMP W-C 1 TAB TABLET PO SCH (08:38)
[2016-12-17] MEDS: FUROSEMIDE 40 MG TABLET PO SCH (08:38)
[2016-12-17] MEDS: MULTIVIT WITH IRON-MINERALS 1 TAB TABLET PO SCH (08:38)
[2016-12-17] MEDS: METOPROLOL TARTRATE 100 MG TABLET PO SCH ×2 (08:38→20:43)
--- NOTE | 2016-12-17 11:29 | OR ---
Anesthesia Procedure Note - Anesthesia Procedure Note Date of Service: 12/17/16 Narrative: Vital Signs - Last Taken Temp 37 C 12/17/16 10:49 Pulse 88 12/17/16 10:49 Resp 18 12/17/16 10:49 BP 152/86 12/17/16 10:49 Pulse Ox 98 12/17/16 10:49 O2 Oxygen Delivery Method Room Air 12/17/16 11:23 ANESTHESIA PROCEDURE NOTE Date of Procedure: 12/17/2016 Time of procedure: 1045. Performed by: CHRIS Rodarte CRNA, MSN Preprocedure diagnosis: Osteomyelitis, long-term IV antibiotic requirements. Post procedure diagnosis: Same. Procedure: PICC for IV access. Indications: Osteomyelitis and required long-term IV therapy. Findings: The patient has been on Coumadin however not currently. His INR was below 2 the procedure and risks were explained and he agrees. For procedure See below. Details of the procedure: After the procedure and risks were explained and the left arm was scouted for venous access with ultrasound, the patient was prepped with DuraPrep and draped, 0.1 mL of 1% lidocaine solution was injected at the intended IV site. With use of ultrasound guidance the left antecubital vein was catheterized with a #22-gauge IV, stylette removed and guidewire inserted. The IV catheter was then removed and after a small holly was made in the skin a dilator was advanced over the guidewire. An untrimmed PICC line was advanced the entirety of its length as he measured 59 cm from left antecubital to the right atrium. The drapes were then removed and the catheter was fixed and dressed. There was good blood return and easy flushing from all ports. Patient tolerated the procedure very well and extremely of the chest was ordered. EBL: Minimal. Fluids: N/A. Specimen: N/A. Post procedure condition: The patient tolerated the procedure well. No complications were noted. Thank you for this consultation. Julian Vazquez CRNA, AUTOMOTIVE PARTS COORDINATOR, MSN
[2016-12-17] MEDS: ASPIRIN 81 MG TABLET.DR PO SCH (16:57)
[2016-12-17] MEDS: ASCORBIC ACID 500 MG TABLET PO SCH (16:58)
[2016-12-17] MEDS: DILTIAZEM HCL 120 MG CAP.SR.24H PO SCH (16:58)
[2016-12-17] MEDS: PANTOPRAZOLE SODIUM 40 MG TABLET.EC PO SCH (16:58)
[2016-12-17] MEDS: CHOLECALCIFEROL 400 UNIT TABLET PO SCH (16:58)
[2016-12-17] MEDS ORDERED: WARFARIN SODIUM 7.5 MG TABLET PO ONE (17:00)
[2016-12-17] MEDS: ROSUVASTATIN CALCIUM 10 MG TABLET PO SCH (20:43)
--- NOTE | 2016-12-17 23:52 | PN ---
Subjective - Date and Time Seen Date: 12/17/16 Time: 16:45 Subjective Narrative: Leonidas reports doing well. Redness continues to improve. Pain controlled. No concerns. Home health will be set up for tomorrow to start outpatient IV antibiotics. Objective - Vitals Vitals: Last Vital Signs Temp 36.4 C L 12/17/16 19:45 Pulse 87 12/17/16 20:43 Resp 18 12/17/16 19:45 BP 127/74 12/17/16 20:43 Pulse Ox 97 12/17/16 19:45 - Abnormal Lab Findings Abnormal Lab Findings: Abnormal Lab Results 12/17/16 12/17/16 12/17/16 Range/Units 05:00 05:00 05:00 MPV 10.6 H (6.0-9.5) fl Lymphocytes % 17.4 L (20-51) % Monocytes % 10.2 H (0.0-9) % Lymphocytes # 0.9 L (1.5-3.5) k/mm3 ESR 20 H (0-10) mm/hr PT (9.4-11.4) Seconds INR (Anticoag Therapy) (0.90-1.10) INR C-Reactive Prot, Quant 3.2 H (0.0-0.9) mg/dL Albumin 3.2 L (3.4-5.0) gm/dl 12/17/16 Range/Units 05:22 MPV (6.0-9.5) fl Lymphocytes % (20-51) % Monocytes % (0.0-9) % Lymphocytes # (1.5-3.5) k/mm3 ESR (0-10) mm/hr PT 15.2 H (9.4-11.4) Seconds INR (Anticoag Therapy) 1.46 H (0.90-1.10) INR C-Reactive Prot, Quant (0.0-0.9) mg/dL Albumin (3.4-5.0) gm/dl - Exam Constitutional: Present: Alert, Oriented x3, Cooperative Respiratory: Present: lungs clear, normal breath sounds Cardiovascular/Chest: Present: no murmur, irregularly irregular Abdomen: Present: Normal bowel sounds, soft, nontender, nondistended Assessment/Plan - Problems/Diagnosis (1) Osteomyelitis Problem: Acute Qualifiers: Osteomyelitis type: unspecified type Osteomyelitis location: foot Laterality: right Qualified Code(s): M86.9 - Osteomyelitis, unspecified Narrative: Osteomyelitis of right 2nd distal phalanx. Patient elected for treatment with IV antibiotics and declined surgery. Patient with PIC line on Vancomycin. Will plan to discharge tomorrow with outpatient IV vancomycin with home health x 6 weeks. (2) Cellulitis Problem: Acute Qualifiers: Site of cellulitis: extremity Site of cellulitis of extremity: toe Laterality: right Qualified Code(s): L03.031 - Cellulitis of right toe (3) Ulcer of toe of right foot Problem: Acute Qualifiers: Non-pressure ulcer stage: with necrosis of bone Qualified Code(s): L97.514 - Non-pressure chronic ulcer of other part of right foot with necrosis of bone (4) Septic arthritis Problem: Acute Qualifiers: Septic arthritis location: foot Laterality: right
[2016-12-18 06:08] LABS: Prothrombin Time (Patient) 15.3 Seconds (9.4-11.4)
[2016-12-18 06:09] LABS: INR 1.47 INR (0.90-1.10)
[2016-12-18] MEDS ORDERED: VANCOMYCIN HCL LEVEL XX ONE (07:30)
[2016-12-18 08:10] VITALS: BP 118/78
[2016-12-18] MEDS: MULTIVIT WITH IRON-MINERALS 1 TAB TABLET PO SCH (09:14)
[2016-12-18] MEDS: METOPROLOL TARTRATE 100 MG TABLET PO SCH (09:14)
[2016-12-18] MEDS: VITAMIN B COMP W-C 1 TAB TABLET PO SCH (09:14)
[2016-12-18] MEDS: FUROSEMIDE 40 MG TABLET PO SCH (09:14)
[2016-12-18] MEDS: VANCOMYCIN HCL 1.75 GM in DEXTROSE 5 % IN WATER 500 ML IV SCH ×2 (09:53)
[2016-12-18 11:02] LABS: Hematocrit 46.4 % (42.0-52.0); Hemoglobin 15.5 gm/dL (13.5-18.0); Mean Cell Volume 90.1 fl (78-100); Mean Corpuscular Hemoglobin 30.1 pg (27-31); Mean Corpuscular Hgb Conc 33.4 g/dl (32-36); Mean Platelet Volume 11.2 fl (6.0-9.5); Neutrophil % 73.1 % (42-75.0); Platelet Count 210 K/mm3 (150-450); Red Blood Count 5.15 M/mm3 (4.7-6.0); White Blood Count 5.5 K/mm3 (4.0-10.5)
[2016-12-18 11:04] LABS: Anion Gap 13.4 mmol/L (6.8-13.8); BUN/Creatinine Ratio 13.1 (9.0-21.6); CRP 2.6 mg/dL (0.0-0.9); Calcium * 8.9 mg/dL (7.9-10.9); Carbon Dioxide 26.7 mmol/L (24-32.6); Estimated Creat Clear 57.1; Potassium 4.1 mmol/L (3.4-4.6)
--- NOTE | 2016-12-18 13:48 | DS ---
(1) Osteomyelitis Problem: Acute Qualifiers: Osteomyelitis type: unspecified type Osteomyelitis location: foot Laterality: right Qualified Code(s): M86.9 - Osteomyelitis, unspecified (2) Cellulitis Problem: Acute Qualifiers: Site of cellulitis: extremity Site of cellulitis of extremity: toe Laterality: right Qualified Code(s): L03.031 - Cellulitis of right toe (3) Ulcer of toe of right foot Problem: Acute Qualifiers: Non-pressure ulcer stage: with necrosis of bone Qualified Code(s): L97.514 - Non-pressure chronic ulcer of other part of right foot with necrosis of bone (4) Septic arthritis Problem: Acute Qualifiers: Septic arthritis location: foot Laterality: right Description of Stay: Leonidas is a 71 yo male that was admitted due to right foot cellulitis with 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 He was started on IV vancomycin and a right foot MRI was obtained. This showed osteomyelitis of right 2nd distal phalanx and septic arthritis of right 2nd DIP. Podiatry was consulted. Discussed with the patient the options of surgical debridement with likely amputation vs a trial of IV antibiotics for 6 weeks. 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 He was set up with PIC line and case management arranged with home health for 6 weeks of IV vancomycin. He improved clinically and was discharged to home. He will get IV vancomycin every 12 hours for 6 weeks. He will have coumadin, renal function, and vancomycin trough monitored during this time by me as an outpatient. He will follow up next week with me and podiatry in wound clinic. It was discussed that if IV antibiotics are not successful in treating the infection he may then need to undergo surgery. Procedures Performed: none Discharge Disposition: Home self care Disposition: [facility] Home Health Condition: Good Discharge Activity: Activity as tolerated Discharge Diet: General/regular food Referrals: Naeem Martin DO [Staff Physician] - One Week Kathleen Nogueira DPM [Staff Physician] - (2 weeks in wound clinic with Dr. Nogueira) Problem Oriented Discharge Instructions to Patient/Family: Bone and Joint Infections, Adult Additional Patient Instructions (free text): [facility] Home Health and [facility] at discharge for Home IV antibiotics. With saline IV flushes twice a day with IV vancomycin. PIC Line care per protocol. Bloodwork with Vancomycin trough to be drawn prior to antibiotic dose. Next trough due 12/20/16 prior to AM dose. Follow up with Dr. Nogueira on 12-29-16 @ 1:00pm in the wound center , please arrive early for paperwork. Prescriptions (Any new or edited meds): 0.9 % Sodium Chloride [Normal Saline Flush] 10 ml IJ BID #84 disp.syrin HYDROcodone/ACETAMINOPHEN [[place] 5-325] 1 each PO Q4H PRN #90 tablet PRN Reason: Mild Pain Levofloxacin [Levaquin] 750 mg PO DAILY #42 tablet Vancomycin HCl [Vancomycin] 1.25 gm IV Q12H 42 Days Complete Home Medications List: Complete Home Medication List: Ascorbic Acid [Vitamin C] 500 mg PO 169912/14/16 Aspirin [Aspir-Low] 81 mg PO 169912/14/16 Atorvastatin Calcium 40 mg PO HS 12/14/16 Cholecalciferol [Vitamin D] 400 unit PO 169912/14/16 Diltiazem HCl [Cardizem Cd] 120 mg PO 169912/14/16 Furosemide [Lasix] 40 mg PO DAILY PRN 12/14/16 Metoprolol Tartrate 100 mg PO BID 12/14/16 Multivit with Iron-Minerals [Compete] 1 tab PO DAILY 12/14/16 Pantoprazole Sodium [Protonix] 40 mg PO 169912/14/16 Potassium Chloride [Klor-Con 10] 20 meq PO BID 12/14/16 Vitamin B Complex Vit C No.4 [Super B Complex] 1 tab PO DAILY 12/14/16 Warfarin Sodium [Coumadin] 2.5 mg PO YATES 12/14/16 Warfarin Sodium [Coumadin] 5 mg PO [id number] 12/14/16 0.9 % Sodium Chloride [Normal Saline Flush] 10 ml IJ BID #84 disp.syrin HYDROcodone/ACETAMINOPHEN [[place] 5-325] 1 each PO Q4H PRN #90 tablet 12/18/16 Levofloxacin [Levaquin] 750 mg PO DAILY #42 tablet 12/18/16 Vancomycin HCl [Vancomycin] 1.25 gm IV Q12H 42 Days 12/18/16 Amb Orders for Discharge: Basic Metabolic Panel Time Frame: 12/20/16, Facility: [facility], Location: Laboratory Prothrombin Time Time Frame: 12/20/16, Facility: [facility], Location: Laboratory Vancomycin Trough Time Frame: 12/20/16, Facility: [facility], Location: Laboratory
[2016-12-18] MEDS ORDERED: WARFARIN SODIUM 7.5 MG TABLET PO ONE (17:00)
[2016-12-18] MEDS ORDERED: VANCOMYCIN HCL 1.25 GM in DEXTROSE 5 % IN WATER 250 ML IV SCH ×2 (20:00)
[2016-12-20] MEDS ORDERED: WARFARIN SODIUM 2.5 MG TABLET PO SCH (17:00)
== END 2016-12-18 15:30 | disposition home health service (06) | DRG 464 ==
LOC: ER 16:43 → MS 18:04
PROVIDERS: ADMIT Family Medicine; ATTEND Family Medicine
PROC: 0HBMXZZ Excision of Right Foot Skin, External Approach (ICD-10-PCS; principal; 2016-12-15)
PROC: 02H633Z Insertion of Infusion Device into Right Atrium, Percutaneous Approach (ICD-10-PCS; 2016-12-17)
DX: M00.9 Pyogenic arthritis, unspecified (principal); M86.9 Osteomyelitis, unspecified; L03.031 Cellulitis of right toe; L97.514 Non-pressure chronic ulcer of other part of right foot with necrosis of bone; E86.0 Dehydration; I48.2 Chronic atrial fibrillation; I10 Essential (primary) hypertension; Z95.2 Presence of prosthetic heart valve; Z79.01 Long term (current) use of anticoagulants

== ENCOUNTER 2017-02-22 09:57 | Day surgery (SDC) | payer MEDICARE ==
[~2017-02-22 09:57] MED LIST: RINGER'S SOLUTION,LACTATED 1,000 ML IV PRN; ceFAZolin SODIUM 2 GM in DEXTROSE 5 % IN WATER 50 ML IV PRN
[2017-02-22] MEDS ORDERED: LIDOCAINE HCL 50 ML VIAL IJ ONE (12:15)
[2017-02-22] MEDS ORDERED: BUPIVACAINE HCL 50 ML VIAL IJ ONE (12:15)
[2017-02-22 14:58] VITALS: BP 109/72
== END 2017-02-22 09:58 | disposition home or self-care (01) ==
LOC: AMB 09:57
PROVIDERS: ATTEND Student in an Organized Health Care Education/Training Program
PROC: 0Y6R0Z3 Detachment at Right 2nd Toe, Low, Open Approach (ICD-10-PCS; principal; 2017-02-22 11:30)
DX: M86.671 Other chronic osteomyelitis, right ankle and foot (principal); I11.0 Hypertensive heart disease with heart failure; I50.9 Heart failure, unspecified; I48.91 Unspecified atrial fibrillation; Z87.891 Personal history of nicotine dependence; Z68.42 Body mass index [BMI] 45.0-49.9, adult